=== PATIENT | female | born 1955 | race Caucasian/White ===

== ENCOUNTER 2022-08-19 15:26 | Inpatient (IN) | payer OTHER, MEDICAID ==
[~2022-08-19] VITALS: Ht 152.4 cm; Wt 63.5 kg
[2022-08-19 16:00] VITALS: BP 124/86
[2022-08-19 16:06] LABS: BASOPHILS % (AUTO) 0.5 % (0.0-2.0); HEMATOCRIT 30.3 % (36-48); HEMOGLOBIN 10.2 g/dL (12.0-16.0); LYMPHOCYTES # (AUTO) 0.3 K/uL (2.5-16.5); LYMPHOCYTES % (AUTO) 5.9 % (20.5-51.1); MEAN CORPUSCULAR HEMOGLOBIN 31 pg (27-31); MEAN CORPUSCULAR HGB CONC 34 g/dL (33-37); MEAN CORPUSCULAR VOLUME 92.9 fL (80-94); MONOCYTES # (AUTO) 0.3 K/uL (0.8-1.0); MONOCYTES % (AUTO) 4.7 % (1.7-9.3); NEUTROPHILS # (AUTO) 4.8 K/uL (1.8-7.7); NEUTROPHILS % (AUTO) 88.9 % (42.2-75.2); PLATELET COUNT (AUTO) 58 K/uL (140-450); RED BLOOD CELL COUNT(AUTO) 3.27 MIL/uL (4.20-5.40); RED CELL DISTRIBUTION WIDTH 18.9 % (11.6-13.7); WHITE BLOOD COUNT (AUTO) 5.4 K/uL (4.8-10.8)
[2022-08-19] MEDS ORDERED: HALOPERIDOL IM 5 MG/ML VIAL IVP ONE (16:10)
[2022-08-19 16:29] LABS: ALBUMIN 3.2 g/dL (3.4-5.0); ANION GAP 15.7 (8-16); ASPARTATE AMINOTRANSFERASE 34 U/L (15-37); CHLORIDE 103 mmol/L (98-107); CREATININE 1.2 mg/dL (0.6-1.3); GFR ARICAN-AMERICAN 58 mL/min (>90); GLUCOSE 248 mg/dL (74-106); POTASSIUM 3.7 mmol/L (3.5-5.1); SODIUM SERUM 136 mmol/L (136-145); TOTAL BILIRUBIN 2.8 mg/dL (0.0-1.0); UREA NITROGEN, BLOOD 21 mg/dL (7-18)
[2022-08-19 16:30] LABS: ACETAMINOPHEN < 0.5 ug/ml (10-30); SALICYLATE < 2.8 mg/dL (2.8-20.0)
[2022-08-19] MEDS ORDERED: LACTULOSE 20 GM/30 ML UDC PO ONE (16:40)
--- NOTE | 2022-08-19 16:46 | NUR ---
PT ASLEEP, AROUSABLE, POST MED ADMINISTRATION. SON CALLED SAYS THIS IS THE 3RD ALOC INCIDENT, 'LIVER TEST WAS HIGH". DR SAUL AWARE
[2022-08-19] MEDS ORDERED: NACL 0.9% 1,000 ML IV ONE (17:30)
[2022-08-19] MEDS ORDERED: LACTULOSE 20 GM/30 ML UDC ONE (17:54)
[2022-08-19 18:11] LABS: APPEARANCE,URINE CLEAR (CLEAR); BILIRUBIN,URINE NEGATIVE (NEGATIVE); BLOOD, URINE TRACE-I (NEGATIVE); COLOR,URINE YELLOW (YELLOW); LEUKOCYTE ESTERASE ,URINE NEGATIVE (NEGATIVE); NITRITE, URINE NEGATIVE (NEGATIVE); UGLUCOSE NEGATIVE (NEGATIVE)
[2022-08-19 18:19] LABS: BARBITURATE, URINE NEGATIVE ng/ml (NEG <=200); BENZODIAZEPINE, URINE NEGATIVE ng/mL (NEG <=200); CANNABINOID, URINE NEGATIVE ng/mL (NEG <=50); COCAINE, URINE NEGATIVE ng/mL (NEG <=300); OPIATE, URINE NEGATIVE ng/mL (NEG <=2000); PHENCYCLIDINE SCREEN,URINE NEGATIVE ng/mL (NEG <=25)
[2022-08-19 18:26] LABS: WBC,URINE 0-5 /HPF (0-5)
[2022-08-19] MEDS ORDERED: cefTRIAXone 1,000 MG VIAL ONE (18:44)
--- NOTE | 2022-08-19 18:51 | NUR ---
RESTING IN BED, CALM AFTER STR CATH AND SOAKED UP PAD, FOLLOWS DIRECTIONS, TOOK PO FLUIDS AND MEDICINE TOLERATED WELL
--- NOTE | 2022-08-19 18:57 | NUR ---
SLEEPING AT THIS TIME, AROUSABLE
--- NOTE | 2022-08-19 19:46 | NUR ---
COVID SWAB COLLECTED AND SENT
--- NOTE | 2022-08-19 21:23 | NUR ---
REPORT GIVEN TO PRAKASH
--- NOTE | 2022-08-19 21:27 | NUR ---
PT TO [facility] FLOOR AT THIS TIME.
--- NOTE | 2022-08-19 21:27 | NUR ---
Patient will be admitted to care of DR. AUGUSTE. Admited to [facility]. Will go to room 119A. Belongings list completed. Report to
[2022-08-19 21:35] VITALS: BP 148/62
--- NOTE | 2022-08-19 21:35 | NUR ---
RECEIVED PT FROM ER. PATIENT IS ASLEEP, AROUSABLE BY VERBAL STIMULI. ABLE TO AMBULATE WITH ASSIST TO THE BED. DENIES PAIN AT THIS TIME. NO ACUTE RESPIRATORY DISTRESS NOTED. SKIN WARM AND DRY TO TOUCH. BED IN THE LOWEST AND LOCKED POSITION FOR SAFETY, CALL LIGHT IN REACH.
--- NOTE | 2022-08-19 21:41 | NUR ---
The patient's care was reviewed and supervised by Hilary Hansen RN.
--- NOTE | 2022-08-19 21:50 | NUR ---
ADMISSION QUESTIONS ANSWERED BY DAUGHTER SIMON.
[2022-08-19] MEDS ORDERED: ACETAMINOPHEN 325 MG TAB PO PRN (22:40)
[2022-08-19] MEDS ORDERED: LORazepam 2 MG/ML VIAL IVP PRN (22:40)
[2022-08-19] MEDS ORDERED: HYDROcodone/APAP 5/325 MG 1 TAB TAB PO PRN (22:40)
[2022-08-20] VITALS: BP 134/64
[2022-08-20 03:51] VITALS: BP 146/53
--- NOTE | 2022-08-20 06:16 | NUR ---
PATIENT IS ASLEEP. NO DISTRESS NOTED. ALL NEEDS ATTENDED TO. SAFETY PRECAUTIONS MAINTAINED DURING THE SHIFT, CALL LIGHT REMAINS WITHIN REACH.
[2022-08-20 07:17] LABS: BASOPHILS % (AUTO) 0.6 % (0.0-2.0); EOSINOPHILS % (AUTO) 0.7 % (0.0-4.0); HEMATOCRIT 25.3 % (36-48); HEMOGLOBIN 8.6 g/dL (12.0-16.0); LYMPHOCYTES # (AUTO) 0.4 K/uL (2.5-16.5); LYMPHOCYTES % (AUTO) 19.5 % (20.5-51.1); MEAN CORPUSCULAR HEMOGLOBIN 32 pg (27-31); MEAN CORPUSCULAR HGB CONC 34 g/dL (33-37); MEAN CORPUSCULAR VOLUME 93.6 fL (80-94); MONOCYTES # (AUTO) 0.3 K/uL (0.8-1.0); MONOCYTES % (AUTO) 14.2 % (1.7-9.3); NEUTROPHILS # (AUTO) 1.5 K/uL (1.8-7.7); PLATELET COUNT (AUTO) 35 K/uL (140-450); RED BLOOD CELL COUNT(AUTO) 2.71 MIL/uL (4.20-5.40); RED CELL DISTRIBUTION WIDTH 18.4 % (11.6-13.7); WHITE BLOOD COUNT (AUTO) 2.2 K/uL (4.8-10.8)
[2022-08-20 07:33] LABS: ANION GAP 12.9 (8-16); CARBON DIOXIDE 21.5 mmol/L (21-32); CREATININE 0.9 mg/dL (0.6-1.3); POTASSIUM 3.4 mmol/L (3.5-5.1)
[2022-08-20 08:00] VITALS: BP 140/72
[2022-08-20] MEDS: LACTULOSE 20 GM/30 ML UDC PO SCH (09:10)
--- NOTE | 2022-08-20 09:18 | NUR ---
PATIENT HAS BEEN SCREENED AND CATEGORIZED MODERATE NUTRITION RISK. PATIENT WILL BE SEEN WITHIN 3-5 DAYS OF ADMISSION. REVIEWED BY KATIE GUZMAN RD
[2022-08-20] MEDS ORDERED: POTASSIUM CHLORIDE 10 MEQ TABER PO PRN (11:30)
[2022-08-20] MEDS ORDERED: ACETAMINOPHEN 325 MG TAB PO PRN (11:30)
[2022-08-20] MEDS ORDERED: ONDANSETRON 4 MG/2 ML VIAL IVP PRN (11:30)
[2022-08-20] MEDS ORDERED: MAG SULF 2000 MG/WATER PREMIX 50 ML IV PRN (11:30)
[2022-08-20] MEDS ORDERED: HYDROcodone/APAP 7.5/325 MG 1 TAB PO PRN (11:30)
[2022-08-20 12:00] VITALS: BP 141/69
[2022-08-20 14:18] LABS: BASOPHILS % (AUTO) 0.9 % (0.0-2.0); EOSINOPHILS % (AUTO) 0.6 % (0.0-4.0); HEMATOCRIT 27.5 % (36-48); HEMOGLOBIN 9.3 g/dL (12.0-16.0); LYMPHOCYTES # (AUTO) 0.4 K/uL (2.5-16.5); LYMPHOCYTES % (AUTO) 14.3 % (20.5-51.1); MEAN CORPUSCULAR HEMOGLOBIN 32 pg (27-31); MEAN CORPUSCULAR HGB CONC 34 g/dL (33-37); MEAN CORPUSCULAR VOLUME 94.1 fL (80-94); MONOCYTES # (AUTO) 0.3 K/uL (0.8-1.0); MONOCYTES % (AUTO) 11.9 % (1.7-9.3); NEUTROPHILS # (AUTO) 1.9 K/uL (1.8-7.7); NEUTROPHILS % (AUTO) 72.3 % (42.2-75.2); PLATELET COUNT (AUTO) 41 K/uL (140-450); RED BLOOD CELL COUNT(AUTO) 2.92 MIL/uL (4.20-5.40); RED CELL DISTRIBUTION WIDTH 18.3 % (11.6-13.7); WHITE BLOOD COUNT (AUTO) 2.6 K/uL (4.8-10.8)
[2022-08-20 14:28] LABS: PROTHROMBIN TIME 12.8 secs (10.8-13.4)
[2022-08-20 14:50] LABS: CARBON DIOXIDE 20.4 mmol/L (21-32); CREATININE 1.1 mg/dL (0.6-1.3); POTASSIUM 3.4 mmol/L (3.5-5.1)
[2022-08-20 14:56] LABS: CHOL/HDL RATIO 2.2 (1-4.5); FREE T4 (FREE THYROXINE) 1.28 ng/dL (0.76-1.46); MAGNESIUM 1.8 mg/dL (1.8-2.4); PHOSPHORUS 3.3 mg/dL (2.5-4.9); THYROID STIMULATING HORMONE 2.74 uIU/mL (0.34-3.74)
[2022-08-20 16:00] VITALS: BP 112/57
[2022-08-20] MEDS ORDERED: DEXTROSE 50% 50 ML SYR IVP PRN (16:40)
[2022-08-20] MEDS: BLOOD GLUCOSE MONITORING 1 DEV DEV FS SCH ×2 (16:55→20:37)
[2022-08-20] MEDS: INSULIN LISPRO SLIDING SCALE 100 UNITS/ML VIAL SUBQ PRN ×2 (16:55→20:39)
--- NOTE | 2022-08-20 19:30 | NUR ---
RECEIVED PATIENT IN BED AWAKE,ALERT AND ORIENTED X2-3. DENIES PAIN AT THIS TIME. DENIES SHORTNESS OF BREATH. SKIN WARM AND DRY TO TOUCH. SAFETY PRECAUTIONS IN PLACE, BED ALARM ON, CALL LIGHT WITHIN REACH, ENCOURAGED TO CALL IF ASSISTANCE IS NEEDED, PT VERBALLY AGREED.
[2022-08-20 20:00] VITALS: BP 138/54
[2022-08-20] MEDS: DOCUSATE SODIUM 100 MG GELCAP PO SCH (20:37)
--- NOTE | 2022-08-20 20:39 | NUR ---
BS-175 MG/DL, INSULIN GIVEN PER [employer] COVERAGE ORDERED. PROVIDED HS SNACKS-APPLE JUICE AND CRACKERS, PT ATE 100%.
[2022-08-20 21:23] LABS: BARBITURATE, URINE NEGATIVE ng/ml (NEG <=200); BENZODIAZEPINE, URINE NEGATIVE ng/mL (NEG <=200); CANNABINOID, URINE NEGATIVE ng/mL (NEG <=50); COCAINE, URINE NEGATIVE ng/mL (NEG <=300); OPIATE, URINE NEGATIVE ng/mL (NEG <=2000); PHENCYCLIDINE SCREEN,URINE NEGATIVE ng/mL (NEG <=25)
[2022-08-21] VITALS: BP 127/54
--- NOTE | 2022-08-21 00:15 | NUR ---
VITAL SIGNS TAKEN AND DOCUMENTED. DENIES PAIN. CALL LIGHT WITHIN REACH.
[2022-08-21 04:00] VITALS: BP 118/53
--- NOTE | 2022-08-21 06:21 | NUR ---
PATIENT IS ASLEEP. ALL NEEDS ATTENDED TO. NO DISTRESS NOTED. SAFETY PRECAUTIONS MAINTAINED DURING THE SHIFT, CALL LIGHT REMAINS WITHIN REACH.
[2022-08-21] MEDS: BLOOD GLUCOSE MONITORING 1 DEV DEV FS SCH ×2 (06:30→11:36)
[2022-08-21 07:26] LABS: BASOPHILS % (AUTO) 1.1 % (0.0-2.0); EOSINOPHILS % (AUTO) 1.8 % (0.0-4.0); HEMATOCRIT 26.4 % (36-48); LYMPHOCYTES # (AUTO) 0.4 K/uL (2.5-16.5); LYMPHOCYTES % (AUTO) 22.5 % (20.5-51.1); MEAN CORPUSCULAR HEMOGLOBIN 32 pg (27-31); MEAN CORPUSCULAR HGB CONC 34 g/dL (33-37); MEAN CORPUSCULAR VOLUME 93.9 fL (80-94); MONOCYTES # (AUTO) 0.3 K/uL (0.8-1.0); MONOCYTES % (AUTO) 13.8 % (1.7-9.3); NEUTROPHILS # (AUTO) 1.2 K/uL (1.8-7.7); NEUTROPHILS % (AUTO) 60.8 % (42.2-75.2); PLATELET COUNT (AUTO) 31 K/uL (140-450); RED BLOOD CELL COUNT(AUTO) 2.81 MIL/uL (4.20-5.40); RED CELL DISTRIBUTION WIDTH 18.6 % (11.6-13.7)
[2022-08-21 07:28] LABS: WHITE BLOOD COUNT (AUTO) 1.9 K/uL (4.8-10.8)
[2022-08-21 07:31] LABS: ANION GAP 11.1 (8-16); CARBON DIOXIDE 22.7 mmol/L (21-32); CREATININE 0.9 mg/dL (0.6-1.3); POTASSIUM 3.8 mmol/L (3.5-5.1)
[2022-08-21 07:56] LABS: MAGNESIUM 1.9 mg/dL (1.8-2.4); PHOSPHORUS 3.3 mg/dL (2.5-4.9)
[2022-08-21 08:00] VITALS: BP 138/61
[2022-08-21] MEDS: LACTULOSE 20 GM/30 ML UDC PO SCH (08:30)
[2022-08-21] MEDS: DOCUSATE SODIUM 100 MG GELCAP PO SCH (08:30)
[2022-08-21] MEDS ORDERED: PANTOPRAZOLE 40 MG INJ VIAL IVP SCH (09:00)
[2022-08-21] MEDS: INSULIN LISPRO SLIDING SCALE 100 UNITS/ML VIAL SUBQ PRN (11:44)
[2022-08-21 12:00] VITALS: BP 128/57
[2022-08-21] MEDS ORDERED: LACT10SO11 PO (13:28)
--- NOTE | 2022-08-21 14:08 | NUR ---
DISCHARGE INSTRUCTIONS EXPLAINED TO PT, VERBALIZED UNDERSTANDING. IV REMOVED, BELONGINGS RETURNED.
--- NOTE | 2022-08-21 15:27 | NUR ---
08/21/22 RD INITIAL ASSESSMENT COMPLETED PLEASE REFER TO NUTRITION ASSESSMENT UNDER CARE ACTIVITY FOR ESTIMATED NUTRITIONAL NEEDS. 1. CONTINUE CARDIAC DIET TOLERATED 2. PROVIDED NUTRITION EDUCATION AND HANDOUTS FOR GENERAL HEART-HEALTHY DIET 3. MONITOR PO INTAKE AND NUTRITION RELATED LAB VALUES 4. RD TO FOLLOW-UP 7 DAYS, LOW RISK REVIEWED BY KATIE GUZMAN RD
== END 2022-08-21 14:10 | disposition home or self-care (01) | DRG 871 ==
LOC: MED 15:26 → MTU 19:28
DX: A41.9 Sepsis, unspecified organism (principal); J69.0 Pneumonitis due to inhalation of food and vomit; D61.818 Other pancytopenia; E44.0 Moderate protein-calorie malnutrition; K76.82 Hepatic encephalopathy; N18.9 Chronic kidney disease, unspecified; R73.9 Hyperglycemia, unspecified; K74.60 Unspecified cirrhosis of liver; I50.9 Heart failure, unspecified; E87.6 Hypokalemia; E86.0 Dehydration; Z20.822 Contact with and (suspected) exposure to COVID-19; D63.8 Anemia in other chronic diseases classified elsewhere; R31.9 Hematuria, unspecified; Z90.49 Acquired absence of other specified parts of digestive tract; Z68.27 Body mass index [BMI] 27.0-27.9, adult
CPT/HCPCS: 36415; 70450; 71045; 80048; 80053; 80305; 81001; 82140; 82150; 82550; 82948; 83036; 83605; 83690; 83735; 83880; 84100; 84439; 84443; 84484; 85025; 85610; 85730; 87040; 87081; 87086; 93005; 96365; 96375; 99285; C9113; G0480; G0482; J0696; J1630; J1815; J7060; Q0092